=== PATIENT | female | born 1985 | race Caucasian/White ===

== ENCOUNTER → 2017-05-27 | Outpatient (CLI) | payer OTHER ==
[~2017-05-27] MED LIST: METR250 PO; ONDA4 PO; Z.0.BCPILL PO
[2017-05-27 16:17] LABS: HEMATOCRIT 38.4 % (35.0-46.0); MEAN CELL VOLUME 85.9 FL (80.0-100.0); MEAN CORPUSCULAR HEMOGLOBIN 29.1 PG (27.0-34.0); MEAN CORPUSCULAR HGB CONC 33.8 % (32.0-36.0); PLATELET COUNT 258 TH/MM3 (150-450); RED BLOOD COUNT 4.46 MIL/MM3 (4.00-5.30); REVIEW FLAG FINAL; WHITE BLOOD COUNT 6.6 TH/MM3 (4.0-11.0)
[2017-05-27 16:40] LABS: ALT (GPT) 15 U/L (10-53); ANION GAP 6 MEQ/L (5-15); AST (GOT) 6 U/L (15-37); BICARBONATE 25.9 MEQ/L (21.0-32.0); BLOOD UREA NITROGEN 12 MG/DL (7-18); CHLORIDE 107 MEQ/L (98-107); GLOMERULAR FILTRATION RATE 102 ML/MIN (>89); GLUCOSE,FASTING 86 MG/DL (74-99); POTASSIUM 3.9 MEQ/L (3.5-5.1); SODIUM (NA) 139 MEQ/L (136-145)
[2017-05-27 16:50] LABS: ALKALINE PHOSPHATASE 72 U/L (45-117); TOTAL BILIRUBIN ADULT 0.3 MG/DL (0.2-1.0)
== END ==
LOC: CLAB 15:40
PROVIDERS: ATTEND Family Medicine
DX: K50.90 Crohn's disease, unspecified, without complications (principal)
CPT/HCPCS: 36415; 80053; 84443; 85027

== ENCOUNTER 2018-01-31 07:09 | Inpatient (IN) ==
[2018-01-31] MEDS ORDERED: HYDROmorphone PF Inj 2 MG/ML Vial IV.PUSH ONE (07:31)
--- NOTE | 2018-01-31 07:43 | ED ---
HPI General Chief Complaint: Abdominal Pain Stated Complaint: medical Time Seen by Provider: 01/31/18 07:31 Source: patient Mode of arrival: ambulatory Limitations: no limitations History of Present Illness MD complaint: abdominal pain Onset (ago): hour(s) (at 0130) Pain Consistency: constant Location: periumbilical Severity scale (1-10): 7 Quality: sharp Radiation: none Migration to: no migration Relieving factors: nothing Exacerbating factors: nothing Context: other (Previous history of ruptured ovarian cyst) Associated symptoms: nausea and vomiting Treatments prior to arrival: prescription analgesics Related Data Allergies Allergy/AdvReac Type Severity Reaction Status Date / Time infliximab Allergy Severe Unverified 01/14/17 20:37 infliximab-dyyb Allergy Severe Unverified 01/14/17 20:37 sulfamethoxazole AdvReac Severe NAUSEA, Unverified 01/14/17 20:37 CRAMPING ,EPIGASTRIC PAIN trimethoprim AdvReac Severe NAUSEA, Unverified 01/14/17 20:37 CRAMPING ,EPIGASTRIC PAIN Review of Systems ROS: all other systems reviewed are negative [facility] Medical History Medical History Bacterial meningitis (Acute) Bunion of great toe of left foot (Acute) Crohn's disease (Acute) History of pericarditis (Acute) Ovarian cyst (Acute) Social History Social History Substance History: No History of Abuse Second Hand Smoke Exposure: No Smoking Status: Never smoker How Often Do You Have a Drink Containing Alcohol: 2 to 4 times a month Recent Travel in [facility] within the Last 8 Weeks: No Recent Out of Country Travel within the Last 8 Weeks: No Immunization History Tetanus Immunization: <5 Years Tetanus Immunization Year if Known: 2018 Hx Influenza Vaccine This Season: Yes Exam Const General: cooperative, healthy appearing, comfortable, no acute distress, well developed and well groomed Orientation: alert, awake and oriented x3 HENMT Head: normal to inspection, normocephalic and atraumatic Mouth: moist mucous membranes Eyes Conjunctivae: conjunctivae normal Sclera: sclerae normal EOM: EOM intact bilaterally Neck Neck: normal visual inspection and full ROM Chest Chest: normal inspection of the chest Resp Effort & Inspection: normal respiratory effort and able to speak in complete sentences Auscultation: clear to auscultation bilaterally Cardio Rate: regular rate Rhythm: regular rhythm GI Inspection: normal to inspection Palpation: soft and tender Back/Spine/Pelvis Cervical Spine: cervical ROM normal Thoracic/Lumbar Spine: thoraco-lumbar ROM normal Skin General: no rashes or lesions noted and turgor normal Neuro General: alert, awake, oriented x3, moves all extremities and CN's II-XI intact bilaterally Extrem General: normal to inspection and full ROM Psych Appearance: grossly normal Mental Status: mental status grossly normal Speech and Movement: speech and movement normal Mood: congruent mood Affect: normal affect Attitude: cooperative Thought Process: normal Thought Content: normal Judgment: judgment good Course Reevaluation(s) Reevaluation #1: Her ultrasound is negative. I have added a CBC, CMP, lipase, UA and CT of the abdomen and pelvis. She states that she is now pretty comfortable. Time: 08:40 Reevaluation #2: She remains comfortable. I have reviewed the results of her CT with her and have recommended admission to the hospital. Time: 11:20 Consultations Consultation #1: Dr. Armstrong will admit and consult surgery. Time: 11:39 Initial Documented Vital Signs Pulse Rate 85 01/31/18 07:22 Respiratory Rate 18 01/31/18 07:22 Blood Pressure 119/67 01/31/18 07:22 Pulse Oximetry 99 01/31/18 07:22 Last Documented Vital Signs Temperature 98.5 F 01/31/18 07:28 Pulse Rate 95 H 01/31/18 07:28 Respiratory Rate 18 01/31/18 07:28 Blood Pressure 114/64 01/31/18 07:28 Pulse Oximetry 100 01/31/18 07:28 Medical Decision Making [facility] Narrative Medical decision making narrative: Patient with a known history ovarian cyst who presents complaining with pain similar to that. She also has a history of Crohn's disease but states that this pain is in no way similar to Crohn's disease. She does not have any associated urinary tract symptoms or diarrhea. She does state that the pain is so severe that it is made her vomit. I will treat her pain with Dilaudid. She will be given a liter of IV fluids. test and pelvic ultrasound are pending. Medical Screen Exam Complete: Yes Emergency Medical Condition: Yes Differential Diagnosis Differential Diagnosis: Differential diagnosis of pelvic pain includes but is not limited to UTI, PID, ectopic , spontaneous AB, constipation, viral illness Lab Data Lab results reviewed: Yes I reviewed the patient's lab results. Result diagrams: 01/31/18 08:45 01/31/18 08:45 POC Results POC Urine Results Negative Lab Results 01/31/18 01/31/18 01/31/18 Range/Units 08:45 08:45 08:50 WBC 14.8 H (4.0-11.0) th/mm3 RBC 4.86 (4.00-5.30) mil/mm3 Hgb 14.5 (11.6-15.3) gm/dL Hct 42.4 (35.0-46.0) % MCV 87.4 (80.0-100.0) fL MCH 29.8 (27.0-34.0) pg MCHC 34.1 (32.0-36.0) % RDW 13.9 (11.6-17.2) % Plt Count 290 (150-450) th/mm3 MPV 9.4 (7.0-11.0) fL Neut % (Auto) 81.5 H (16.0-70.0) % Lymph % (Auto) 11.4 (9.0-44.0) % [place] % (Auto) 6.6 (0.0-8.0) % Eos % (Auto) 0.1 (0.0-4.0) % Baso % (Auto) 0.4 (0.0-2.0) % Neut # (Auto) 12.1 H (1.8-7.7) th/mm3 Lymph # (Auto) 1.7 (1.0-4.8) th/mm3 [place] # (Auto) 1.0 H (0.0-0.9) th/mm3 Eos # (Auto) 0.0 (0.0-0.4) th/mm3 Baso # (Auto) 0.1 (0.0-0.2) th/mm3 WBC Differential . Differential Comment Auto diff final Sodium 142 (136-145) meq/L Potassium 3.9 (3.5-5.1) meq/L Chloride 107 (98-107) meq/L Carbon Dioxide 22.8 (21.0-32.0) meq/L Anion Gap 12 (5-15) meq/L BUN 10 (7-18) mg/dL Creatinine 0.79 (0.50-1.00) mg/dL Estimated GFR 84 L (>89) mL/min Random Glucose 95 (74-106) mg/dL Calcium 9.2 (8.5-10.1) mg/dL Total Bilirubin 0.5 (0.2-1.0) mg/dL AST 11 L (15-37) U/L ALT 22 (10-53) U/L Alkaline Phosphatase 65 (45-117) U/L Total Protein 8.2 (6.4-8.2) g/dL Albumin 4.1 (3.4-5.0) g/dL Lipase 80 (73-393) U/L Urine Color Yellow (Yellw/Straw) Urine Clarity Hazy H (Clear) Urine pH 7.0 (5.0-8.5) Ur Specific [place] 1.025 (1.002-1.035) Urine Protein Negative (Neg-Trace) mg/dL Urine Glucose (UA) Negative (Negative) mg/dL Urine Ketones 20 (Negative) mg/dL Urine Occult Blood Negative (Negative) Urine Nitrate Negative (Negative) Urine Bilirubin Negative (Negative) Urine Urobilinogen Less than 2 (Less than 2) mg/dL Ur Leukocyte Esterase Trace H (Negative) Urine RBC 2 (0-3) /hpf Urine WBC 1 (0-5) /hpf Ur Squamous Epith Cells 4 (0-5) /hpf Urine Mucus Few H (Occasional) /lpf Micro UA Comment Culture not ind Ur Microscopic Review Not Reportable Urine Culture Comments Culture not ind Imaging Data Radiologist's impression: Pelvis Ultrasound 01/31/18 07:31 CONCLUSION: 1. Negative ultrasound pelvis. Abdomen/Pelvis CT 01/31/18 08:38 CONCLUSION: 1. Abnormal configuration of bowel in the right lower quadrant and upper pelvis is noted with bowel wall thickening, a small amount of free fluid and mesenteric stranding identified. There is a long segment of abnormal thickened bowel at the level of the terminal ileum with proximal small bowel dilatation suggesting at least partial obstruction or ileus. The inflammatory changes and wall thickening also appear to involve the sigmoid colon in this region. Fistulous communication between sigmoid colon and distal ileum as well as sigmoid and base of cecum are also suspected best appreciated on coronal imaging , sigmoid and distal ileum on coronal image 30 and 31, and sigmoid and cecum on image 30. Is there a history of inflammatory bowel disease? Discharge Plan Discharge Disposition Patient Disposition: 30 Still Patient Discharge Details Diagnosis: Abdominal pain, Bowel disease, inflammatory, Partial bowel obstruction Physicians Team ED Provider: Leonor Hlil Primary Care Provider: Harvinder Valle Status ED Status: Pending Admission
[2018-01-31] MEDS ORDERED: Sod Chloride 0.9% Inj 1,000 ML IV.SIG SCH (07:45)
--- NOTE | 2018-01-31 08:34 | US ---
EXAM DATE: 01/31/2018 8:21 AM EDT AGE/SEX: 32 years / Female INDICATIONS: Pelvic pain. CLINICAL DATA: This is the patient's initial encounter. Patient reports that signs and symptoms have been present for 1 day and indicates a pain score of 7/10. MEDICAL/SURGICAL HISTORY: Carcinoma, anal. Bacterial meningitis. Crohn's disease. History of pe ricarditis. Ovarian cysts. None. COMPARISON: No prior exams available for comparison. MEASUREMENTS: Uterus:__7.6 x 4.6 x 3.8 cm Endometrial Stripe:__11 mm Right Ovary:__ 3.5 x 2.6 x 2.2 cm Left Ovary:__ 4.3 x 2.5 x 2.0 cm FINDINGS: Uterus: The myometrium has homogeneous echotexture without mass. Endometrial Stripe: The endometrial stripe displays homogeneous echotexture. Right Ovary: Ovary contains no mass or significant cystic lesion. Left Ovary: Ovary contains no mass or significant cystic lesion. Fluid: No free fluid. Other: None. CONCLUSION: 1. Negative ultrasound pelvis. Electronically signed by: Scar Zhao MD 01/31/2018 8:33 AM EDT
[2018-01-31 09:05] LABS: Baso # (Auto) 0.1 th/mm3 (0.0-0.2); Baso % (Auto) 0.4 % (0.0-2.0); Eos % (Auto) 0.1 % (0.0-4.0); Hematocrit 42.4 % (35.0-46.0); Hemoglobin 14.5 gm/dL (11.6-15.3); Lymph # (Auto) 1.7 th/mm3 (1.0-4.8); Lymph % (Auto) 11.4 % (9.0-44.0); Mean Corpuscular HGB Conc 34.1 % (32.0-36.0); Mean Corpuscular Hemoglobin 29.8 pg (27.0-34.0); Mean Corpuscular Volume 87.4 fL (80.0-100.0); Mean Platelet Volume 9.4 fL (7.0-11.0); Mono % (Auto) 6.6 % (0.0-8.0); Neut # (Auto) 12.1 th/mm3 (1.8-7.7); Neut % (Auto) 81.5 % (16.0-70.0); Platelet Count 290 th/mm3 (150-450); Red Blood Count 4.86 mil/mm3 (4.00-5.30); Red Cell Distribution Width 13.9 % (11.6-17.2); White Blood Count 14.8 th/mm3 (4.0-11.0)
[2018-01-31 09:09] LABS: Bilirubin,Urine Negative (Negative); Clarity,Urine Hazy (Clear); Color,Urine Yellow (Yellw/Straw); Glucose,Urine (UA) Negative (Negative); Leukocyte Esterase,Urine Trace (Negative); Mucus,Urine Few /lpf (Occasional); Nitrite,Urine Negative (Negative); Specific Gravity,Urine 1.025 (1.002-1.035); Squamous Epithelial Cell,Urine 4 /hpf (0-5)
[2018-01-31 09:23] LABS: Alanine Aminotransferase 22 U/L (10-53); Albumin 4.1 g/dL (3.4-5.0); Anion Gap 12 meq/L (5-15); Aspartate Aminotransferase 11 U/L (15-37); Blood Urea Nitrogen 10 mg/dL (7-18); Calcium 9.2 mg/dL (8.5-10.1); Carbon Dioxide 22.8 meq/L (21.0-32.0); Chloride 107 meq/L (98-107); Glomerular Filtration Rate 84 mL/min (>89); Glucose,Random 95 mg/dL (74-106); Lipase 80 U/L (73-393); Potassium 3.9 meq/L (3.5-5.1); Sodium 142 meq/L (136-145)
[2018-01-31 09:25] LABS: Alkaline Phosphatase 65 U/L (45-117); Total Protein 8.2 g/dL (6.4-8.2)
--- NOTE | 2018-01-31 10:49 | CT ---
EXAM DATE: 01/31/2018 10:29 AM EDT AGE/SEX: 32 years / Female INDICATIONS: Abdominal pain. CLINICAL DATA: This is the patient's initial encounter. Patient reports that signs and symptoms have been present for 1 day and indicates a pain score of 8/10. MEDICAL/SURGICAL HISTORY: Crohn's disease. Pericarditis. Bacterial meningitis. None. ORAL CONTRAST: No oral contrast ingested. RADIATION DOSE: 4.7 CTDI (mGy) COMPARISON: No prior exams available for comparison. TECHNIQUE: Multiple contiguous axial images were obtained through the abdomen and pelvis following b olus infusion of 70 ml Omnipaque 350 (iohexol) nonionic water-soluble contrast as a single exam dos e. No oral contrast ingested. Using automated exposure control and adjustment of the mA and/or kV ac cording to patient size, radiation dose was kept as low as reasonably achievable to obtain optimal di agnostic quality images. DICOM format image data is available electronically for review and comparis on. FINDINGS: No pleural or pericardial effusions. Lung bases are clear. Liver, gallbladder, kidneys, adrenals, spl een, pancreas are normal in appearance. Urinary bladder, uterus unremarkable. 1.7 cm right ovarian cy st. In the right lower quadrant and upper pelvis there is an abnormal configuration of large and smal l bowel loops identified with a tethered appearance, mesenteric stranding, focal narrowing of the dis letitia ileum with bowel wall thickening and then dilated proximal fluid-filled loops of small bowel seen . Focal bowel wall thickening involves the sigmoid as well as distal small bowel with findings sugges ting adhesions at this level, best appreciated on axial image 61 through 65. There is no free air. CONCLUSION: 1. Abnormal configuration of bowel in the right lower quadrant and upper pelvis is noted with bowel wall thickening, a small amount of free fluid and mesenteric stranding identified. There is a long se gment of abnormal thickened bowel at the level of the terminal ileum with proximal small bowel dilata tion suggesting at least partial obstruction or ileus. The inflammatory changes and wall thickening a lso appear to involve the sigmoid colon in this region. Fistulous communication between sigmoid colon and distal ileum as well as sigmoid and base of cecum are also suspected best appreciated on coronal imaging, sigmoid and distal ileum on coronal image 30 and 31, and sigmoid and cecum on image 30. Is there a history of inflammatory bowel disease? Electronically signed by: Scar Zhao MD 01/31/2018 10:47 AM EDT
[2018-01-31] MEDS ORDERED: Piperacil/Tazo 3.375 GM Premix 50 ML IV.SIG ONE (11:00)
[2018-01-31] MEDS ORDERED: Acetaminophen 325 MG Tablet PO PRN (11:45)
[2018-01-31] MEDS ORDERED: Temazepam 15 MG Capsule PO PRN (11:45)
[2018-01-31] MEDS ORDERED: HYDROmorphone PF Inj 2 MG/ML Vial IV.PUSH PRN ×2 (11:54→12:20)
--- NOTE | 2018-01-31 12:01 | P.HP ---
<Hetal Kerr - Last Filed: 01/31/18 12:50> History of Present Illness Primary Care Physician: Harvinder Valle MD History of Present Illness: This 32 year old female patient with a past medical history which includes Crohn 's disease diagnosed at age 8, follow ed by Dr. Diaz, Ovarian cysts, Pericarditis and Bacterial meningitis at age 16. Patient presents to the ER with complaints of acute onset abd pain worse on the left which began early this AM while patient was sleeping. Patient does endorse associated nausea and vomiting x 5-6. Patient describes the pain as sharp and severe at onset. Patient tried taking Percocet and Phenergan at home which did not relieve symptoms. Currently patient's pain has improved after Dilaudid IV x 1 given in ER. One loose BM while in the ER, no blood or black color. Patient recently completed 2-3 month prednisone taper which she completed 1 week ago. Last colonoscopy 2014, she has colonoscopies every 5 years Patient denies fevers, chills, shortness of breath or chest pain. Pelvis Ultrasound 01/31/18 07:31 1. Negative ultrasound pelvis. Abdomen/Pelvis CT 01/31/18 08:38 1. Abnormal configuration of bowel in the right lower quadrant and upper pelvis is noted with bowel wall thickening, a small amount of free fluid and mesenteric stranding identified. There is a long segment of abnormal thickened bowel at the level of the terminal ileum with proximal small bowel dilatation suggesting at least partial obstruction or ileus. The inflammatory changes and wall thickening also appear to involve the sigmoid colon in this region. Fistulous communication between sigmoid colon and distal ileum as well as sigmoid and base of cecum are also suspected best appreciated on coronal imaging , sigmoid and distal ileum on coronal image 30 and 31, and sigmoid and cecum on image 30. Is there a history of inflammatory bowel disease? PMH: Crohn's disease diagnosed at age 8, follow ed by Dr. 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 This includes certification that hospital inpatient services are reasonable and necessary and in the case of services not specified as inpatient-only under 42 CFR 419.22(n), that they are appropriately provided as inpatient services in accordance to with the 2-midnight benchmark under 43 CFR 412.3(e) Review of Systems All other systems reviewed negative except as stated in HPI PMFSH - History History Provided By: Patient - Medical History Medical History: Medical History (Last Reviewed 01/31/18 @ 07:41 by Leonor Hill) Bacterial meningitis Bunion of great toe of left foot Crohn's disease History of pericarditis Ovarian cyst - Tobacco History Second Hand Smoke Exposure: No Tobacco Use In Past 30 Days: No Smoking Status: Never smoker - Alcohol History How Often Do You Have a Drink Containing Alcohol: 2 to 4 times a month - Substance Use History Substance History: No History of Abuse - Travel History Recent Travel in the [place] Within the Last 8 Weeks: No Recent Travel Out of the Country Within the Last 8 Weeks: No - Immunization History Tetanus Immunization: <5 Years Tetanus Immunization Year if Known: 2017 Hx Influenza Vaccine This Season: Yes Medications and Allergies Allergies Allergy/AdvReac Type Severity Reaction Status Date / Time infliximab Allergy Severe Unverified 01/14/17 20:37 infliximab-dyyb Allergy Severe Unverified 01/14/17 20:37 sulfamethoxazole AdvReac Severe NAUSEA, Unverified 01/14/17 20:37 CRAMPING ,EPIGASTRIC PAIN trimethoprim AdvReac Severe NAUSEA, Unverified 01/14/17 20:37 CRAMPING ,EPIGASTRIC PAIN Home Medications Medication Instructions Recorded Confirmed Type No Known Home Medications 01/31/18 01/31/18 History Active Medications: Active Medications Sodium Chloride (Ns Inj) 1,000 mls @ 0 mls/hr IV.SIG BOLUS MURRAY Last Admin: 01/31/18 07:39 Dose: 999 mls/hr Sodium Chloride (Ns Flush) 2 ml IV.FLUSH PRN PRN PRN Reason: FLUSH AFTER USING IV ACCESS Exam Vital signs: Vital Signs 01/31/18 07:22 01/31/18 07:28 Temperature 98.5 F Pulse Rate 85 95 H Respiratory Rate 18 18 Blood Pressure 119/67 114/64 Pulse Oximetry 99 100 Intake & Output 01/30/18 01/31/18 01/31/18 18:59 06:59 18:59 Weight 49.895 kg Narrative: GENERAL: This is a well-nourished, well-developed patient, in no apparent distress. CARDIOVASCULAR: Regular rate and rhythm RESPIRATORY: Clear to auscultation. Breath sounds equal bilaterally. GASTROINTESTINAL: Abdomen soft, non-tender, nondistended. very few bowel sounds MUSCULOSKELETAL: Extremities without clubbing, cyanosis, or edema. NEURO: Alert & Oriented x4 to person, place, time, situation. Moves all ext x4 Results - Labs CBC & Chem 7: 01/31/18 08:45 01/31/18 08:45 Labs: Laboratory Results - last 24 hr 01/31/18 01/31/18 01/31/18 08:45 08:45 08:50 WBC 14.8 H RBC 4.86 Hgb 14.5 Hct 42.4 MCV 87.4 MCH 29.8 MCHC 34.1 RDW 13.9 Plt Count 290 MPV 9.4 Neut % (Auto) 81.5 H Lymph % (Auto) 11.4 [place] % (Auto) 6.6 Eos % (Auto) 0.1 Baso % (Auto) 0.4 Neut # (Auto) 12.1 H Lymph # (Auto) 1.7 [place] # (Auto) 1.0 H Eos # (Auto) 0.0 Baso # (Auto) 0.1 WBC Differential . Differential Comment Auto diff final Sodium 142 Potassium 3.9 Chloride 107 Carbon Dioxide 22.8 Anion Gap 12 BUN 10 Creatinine 0.79 Estimated GFR 84 L Random Glucose 95 Calcium 9.2 Total Bilirubin 0.5 AST 11 L ALT 22 Alkaline Phosphatase 65 Total Protein 8.2 Albumin 4.1 Lipase 80 Urine Color Yellow Urine Clarity Hazy H Urine pH 7.0 Ur Specific [place] 1.025 Urine Protein Negative Urine Glucose (UA) Negative Urine Ketones 20 Urine Occult Blood Negative Urine Nitrate Negative Urine Bilirubin Negative Urine Urobilinogen Less than 2 Ur Leukocyte Esterase Trace H Urine RBC 2 Urine WBC 1 Ur Squamous Epith Cells 4 Urine Mucus Few H Micro UA Comment Culture not ind Ur Microscopic Review Not Reportable Urine Culture Comments Culture not ind - Imaging Impressions Pelvis Ultrasound 01/31/18 07:31 CONCLUSION: 1. Negative ultrasound pelvis. Abdomen/Pelvis CT 01/31/18 08:38 CONCLUSION: 1. Abnormal configuration of bowel in the right lower quadrant and upper pelvis is noted with bowel wall thickening, a small amount of free fluid and mesenteric stranding identified. There is a long segment of abnormal thickened bowel at the level of the terminal ileum with proximal small bowel dilatation suggesting at least partial obstruction or ileus. The inflammatory changes and wall thickening also appear to involve the sigmoid colon in this region. Fistulous communication between sigmoid colon and distal ileum as well as sigmoid and base of cecum are also suspected best appreciated on coronal imaging , sigmoid and distal ileum on coronal image 30 and 31, and sigmoid and cecum on image 30. Is there a history of inflammatory bowel disease? Caprini VTE Risk Assessment Caprini VTE Risk Assessment: No/Low Risk (score <= 1) Caprini Risk Assessment Model: Point Value = 1 Point Value = 2 Point Value = 3 Point Value = 5 Age 41-60 Minor surgery BMI > 25 kg/m2 Swollen legs Varicose veins or History of unexplained or recurrent spontaneous Oral contraceptives or hormone replacement Sepsis (< 1 month) Serious lung disease, including pneumonia (< 1 month) Abnormal pulmonary function Acute myocardial infarction Congestive heart failure (< 1 month) History of inflammatory bowel disease Medical patient at bed rest Age 61-74 Arthroscopic surgery Major open surgery (> 45 min) Laparoscopic surgery (> 45 min) Malignancy Confined to bed (> 72 hours) Immobilizing plaster cast Central venous access Age >= 75 History of VTE Family history of VTE Factor V Leiden Prothrombin [id number] Lupus anticoagulant Anticardiolipin antibodies Elevated serum homocysteine Heparin-induced thrombocytopenia Other congenital or acquired thrombophilia Stroke (< 1 month) Elective arthroplasty Hip, pelvis, or leg fracture Acute spinal cord injury (< 1 month) Prophylaxis Regimen: Total Risk Factor Score Risk Level Prophylaxis Regimen 0-1 Low Early ambulation 2 Moderate Order ONE of the following: *Sequential Compression Device (SCD) *Heparin 5000 units SQ BID 3-4 Higher Order ONE of the following medications: *Heparin 5000 units SQ TID *Enoxaparin/Lovenox 40 mg SQ daily (WT < 150 kg, CrCl > 30 mL/min) *Enoxaparin/Lovenox 30 mg SQ daily (WT < 150 kg, CrCl > 10-29 mL/min) *Enoxaparin/Lovenox 30 mg SQ BID (WT < 150 kg, CrCl > 30 mL/min) AND/OR *Sequential Compression Device (SCD) 5 or more Highest Order ONE of the following medications: *Heparin 5000 units SQ TID (Preferred with Epidurals) *Enoxaparin/Lovenox 40 mg SQ daily (WT < 150 kg, CrCl > 30 mL/min) *Enoxaparin/Lovenox 30 mg SQ daily (WT < 150 kg, CrCl > 10-29 mL/min) *Enoxaparin/Lovenox 30 mg SQ BID (WT < 150 kg, CrCl > 30 mL/min) AND *Sequential Compression Device (SCD) Assessment and Plan - Assessment (1) Abdominal pain Code(s): R10.9 - Unspecified abdominal pain Status: Acute Plan: This 32 year old female patient with a past medical history which includes Crohn 's disease diagnosed at age 8, follow ed by Dr. Diaz, Ovarian cysts, Pericarditis and Bacterial meningitis at age 16. Patient presents to the ER with complaints of acute onset suprapubic pain which began early this AM while patient was sleeping. Patient does endorse associated nausea and vomiting. Patient describes the pain as sharp and severe at onset. Currently patient's pain has improved after Dilaudid 2 g IV x 1 given in ER. Patient denies fevers, chills, shortness of breath or chest pain. Pelvis Ultrasound 01/31/18 07:31 1. Negative ultrasound pelvis. Abdominal pain partial obstruction vs ileus Fistula- communication between sigmoid colon and distal ileum as well as sigmoid and base of cecum Abdomen/Pelvis CT 01/31/18 08:38 1. Abnormal configuration of bowel in the right lower quadrant and upper pelvis is noted with bowel wall thickening, a small amount of free fluid and mesenteric stranding identified. There is a long segment of abnormal thickened bowel at the level of the terminal ileum with proximal small bowel dilatation suggesting at least partial obstruction or ileus. The inflammatory changes and wall thickening also appear to involve the sigmoid colon in this region. Fistulous communication between sigmoid colon and distal ileum as well as sigmoid and base of cecum are also suspected best appreciated on coronal imaging , sigmoid and distal ileum on coronal image 30 and 31, and sigmoid and cecum on image 30. Is there a history of inflammatory bowel disease? Dr. Donnelly discussed case with Dr. Acevedo Patient seen by Dr. Reddy, recommends medical management at this time Start solu medrol 60 mg IV BID Consult to Dr. Diaz NPO Patient does not want NG tube, will hold of for now IVFs Zosyn IV Zofran as needed for N/V CBC and BMP in AM coag panel CXR DVT prophylaxis with SCDs <Rupert Armstrong - Last Filed: 02/01/18 12:37> History of Present Illness Primary Care Physician: Harvinder Valle MD - Diagnosis (1) Abdominal pain Inpatient Certification: I certify that the inpatient services were ordered in accordance with Medicare regulations governing the order. This includes certification that hospital inpatient services are reasonable and necessary and in the case of services not specified as inpatient-only under 42 CFR 419.22(n), that they are appropriately provided as inpatient services in accordance to with the 2-midnight benchmark under 43 CFR 412.3(e) [facility] - Medical History Medical History: Medical History (Last Reviewed 01/31/18 @ 07:41 by Leonor Hill) Bacterial meningitis Bunion of great toe of left foot Crohn's disease History of pericarditis Ovarian cyst Medications and Allergies Active Medications: Active Medications Acetaminophen (Tylenol) 650 mg PO Q4H PRN PRN Reason: Temp > 100.4 Hydrocodone Bitart/Acetaminophen ([place] 7.5/325) 1 tab PO Q4H PRN PRN Reason: PAIN SCALE 1 TO 10 Al Hydroxide/Mg Hydroxide (Milk Of Saman Liq) 30 ml PO Q12H PRN PRN Reason: Mild Constipation Hydromorphone HCl (Dilaudid Pf Inj) 0.5 mg IV.PUSH Q4H PRN PRN Reason: BREAKTHROUGH PAIN Sodium Chloride (Ns Inj) 1,000 mls @ 0 mls/hr IV.SIG BOLUS MURRAY Last Infusion: 01/31/18 16:31 Dose: Infused Potassium Chloride 10 meq/ (Sodium Chloride) 1,005 mls @ 100 mls/hr IV.CONT .Q10H3M MURRAY Last Admin: 02/01/18 01:36 Dose: 50 mls/hr Piperacillin/Tazobactam/Dextrose (Zosyn 3.375 Gm Premix) 50 mls @ 100 mls/hr IV.SIG Q6H MURRAY Last Infusion: 02/01/18 06:36 Dose: Infused Methylprednisolone Sodium Succinate (Solumedrol Inj) 60 mg IV.PUSH Q12HR MURRAY Last Admin: 02/01/18 09:20 Dose: 60 mg Ondansetron HCl (Zofran Inj) 4 mg IV.PUSH Q4H PRN PRN Reason: NAUSEA OR VOMITING Senna/Docusate Sodium (Susan-Colace) 1 tab PO BID [facility] Last Admin: 02/01/18 09:19 Dose: Not Given Sodium Chloride (Ns Flush) 2 ml IV.FLUSH PRN PRN PRN Reason: FLUSH AFTER USING IV ACCESS Temazepam (Restoril) 15 mg PO HS PRN PRN Reason: INSOMNIA Exam Vital signs: Vital Signs 01/31/18 16:00 01/31/18 20:00 02/01/18 00:00 Temperature 98.1 F 98.1 F 98.2 F Pulse Rate 81 84 84 Respiratory Rate 17 18 18 Blood Pressure 103/53 L 93/50 L 92/55 L Pulse Oximetry 98 98 98 02/01/18 08:00 02/01/18 12:00 Temperature 98.0 F 98.2 F Pulse Rate 83 79 Respiratory Rate 17 17 Blood Pressure 110/55 L 104/57 L Pulse Oximetry 99 99 Intake & Output 01/31/18 02/01/18 02/01/18 18:59 06:59 18:59 Intake Total 1050 / 1050 1515 / 1515 Balance 1050 / 1050 1515 / 1515 Weight 49.895 kg 49.9 kg Intake: IV 1050 / 1050 1155 / 1155 KCl Inj 10 MEQ In 1/2 Normal 1005 / 1005 Saline Inj 1,000 ML @ 100 mls/ hr IV.CONT .Q10H3M MURRAY Rx#: [id number] Zosyn 3.375 GM Premix 50 ML @ 50 / 50 150 / 150 100 mls/hr IV.SIG Q6H MURRAY Rx#: [id number] NS Inj 1,000 ML @ Wide Open IV. 1000 / 1000 SIG BOLUS MURRAY Rx#:[id number] Oral 360 / 360 Other: # Voids 2 Date of Last Bowel Movement 01/31/18 02/01/18 # Bowel Movements 1 Results - Labs CBC & Chem 7: 02/01/18 05:36 02/01/18 05:36 Labs: Laboratory Results - last 24 hr 01/31/18 01/31/18 01/31/18 13:49 13:49 13:49 WBC RBC Hgb Hct MCV MCH MCHC RDW Plt Count MPV Neut % (Auto) Lymph % (Auto) [place] % (Auto) Eos % (Auto) Baso % (Auto) Neut # (Auto) Lymph # (Auto) [place] # (Auto) Eos # (Auto) Baso # (Auto) WBC Differential Differential Comment PT 10.0 INR 1.0 APTT 25.9 Sodium Potassium Chloride Carbon Dioxide Anion Gap BUN Creatinine Estimated GFR Random Glucose Calcium Magnesium 2.0 02/01/18 02/01/18 05:36 05:36 WBC 8.3 RBC 4.17 Hgb 12.6 Hct 36.0 MCV 86.3 MCH 30.2 MCHC 35.0 RDW 13.5 Plt Count 236 MPV 9.6 Neut % (Auto) 88.8 H Lymph % (Auto) 8.5 L [place] % (Auto) 2.6 Eos % (Auto) 0.0 Baso % (Auto) 0.1 Neut # (Auto) 7.3 Lymph # (Auto) 0.7 L [place] # (Auto) 0.2 Eos # (Auto) 0.0 Baso # (Auto) 0.0 WBC Differential . Differential Comment Auto diff final PT INR APTT Sodium 143 Potassium 3.7 Chloride 108 H Carbon Dioxide 23.4 Anion Gap 12 BUN 7 Creatinine 0.64 Estimated GFR Greater than 89 Random Glucose 104 Calcium 8.4 L D Magnesium - Imaging Impressions Chest X-Ray 01/31/18 00:00 CONCLUSION: Negative examination. Caprini VTE Risk Assessment Caprini Risk Assessment Model: Point Value = 1 Point Value = 2 Point Value = 3 Point Value = 5 Age 41-60 Minor surgery BMI > 25 kg/m2 Swollen legs Varicose veins or History of unexplained or recurrent spontaneous Oral contraceptives or hormone replacement Sepsis (< 1 month) Serious lung disease, including pneumonia (< 1 month) Abnormal pulmonary function Acute myocardial infarction Congestive heart failure (< 1 month) History of inflammatory bowel disease Medical patient at bed rest Age 61-74 Arthroscopic surgery Major open surgery (> 45 min) Laparoscopic surgery (> 45 min) Malignancy Confined to bed (> 72 hours) Immobilizing plaster cast Central venous access Age >= 75 History of VTE Family history of VTE Factor V Leiden Prothrombin [id number] Lupus anticoagulant Anticardiolipin antibodies Elevated serum homocysteine Heparin-induced thrombocytopenia Other congenital or acquired thrombophilia Stroke (< 1 month) Elective arthroplasty Hip, pelvis, or leg fracture Acute spinal cord injury (< 1 month) Prophylaxis Regimen: Total Risk Factor Score Risk Level Prophylaxis Regimen 0-1 Low Early ambulation 2 Moderate Order ONE of the following: *Sequential Compression Device (SCD) *Heparin 5000 units SQ BID 3-4 Higher Order ONE of the following medications: *Heparin 5000 units SQ TID *Enoxaparin/Lovenox 40 mg SQ daily (WT < 150 kg, CrCl > 30 mL/min) *Enoxaparin/Lovenox 30 mg SQ daily (WT < 150 kg, CrCl > 10-29 mL/min) *Enoxaparin/Lovenox 30 mg SQ BID (WT < 150 kg, CrCl > 30 mL/min) AND/OR *Sequential Compression Device (SCD) 5 or more Highest Order ONE of the following medications: *Heparin 5000 units SQ TID (Preferred with Epidurals) *Enoxaparin/Lovenox 40 mg SQ daily (WT < 150 kg, CrCl > 30 mL/min) *Enoxaparin/Lovenox 30 mg SQ daily (WT < 150 kg, CrCl > 10-29 mL/min) *Enoxaparin/Lovenox 30 mg SQ BID (WT < 150 kg, CrCl > 30 mL/min) AND *Sequential Compression Device (SCD) Assessment and Plan - Assessment (1) Abdominal pain Code(s): R10.9 - Unspecified abdominal pain Status: Acute - Attending Attestation Patient examined. Assessment and plan formulated with Hetal Kerr PA-C. I agree with the above. <Hetal Kerr W - Last Filed: 01/31/18 12:50> (1) Abdominal pain Qualifiers: Abdominal location: periumbilical Qualified Code(s): R10.33 - Periumbilical pain <Rupert Armstrong - Last Filed: 02/01/18 12:37> (1) Abdominal pain Qualifiers: Abdominal location: periumbilical Qualified Code(s): R10.33 - Periumbilical pain
--- NOTE | 2018-01-31 12:51 | XR ---
EXAM DATE: 01/31/2018 12:31 PM EDT AGE/SEX: 32 years / Female INDICATIONS: Cough. Abdominal pain. CLINICAL DATA: This is the patient's initial encounter. Patient reports that signs and symptoms have been present for 1 day and indicates a pain score of 0/10. MEDICAL/SURGICAL HISTORY: . Carcinoma, anal. Bacterial meningitis. Crohn's disease. History of pericarditis. Ovarian cysts. None. COMPARISON: [facility] [place], CHEST ONE VIEW EMPLOYMED ONLY, 11/01/2014. . FINDINGS: A single AP view of the chest demonstrates the lungs to be symmetrically aerated without evidence of mass, infiltrate or effusion. The cardiomediastinal contours are unremarkable. Osseous structures a re intact. CONCLUSION: Negative examination. Electronically signed by: Scar Zhao MD 01/31/2018 12:49 PM EDT
[2018-01-31] MEDS: Potassium Chloride Inj 10 MEQ in Sodium Chloride 0.45 % Inj 1,000 ML IV.CONT SCH (15:09)
[2018-01-31] MEDS: MethylPREDNISolone Sod Succinate Inj 125 MG/2 ML Vial IV.PUSH SCH ×2 (15:10→21:02)
--- NOTE | 2018-01-31 15:36 | MB ---
cc: Manjit Reddy MD, Edward B DO Moulis, Harry MD DATE: 01/31/2018 CHIEF COMPLAINT: Abdominal pain. 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 It started about 1:30 this morning and she thought maybe that it was an ovarian cyst rupturing. She took a Percocet of her 's and it relieved the pain a little bit, but did not really remove the pain. She then became nauseated and had multiple episodes of vomiting at home and then again at the hospital. She says that her pain has eased off at this time, although she has had some intravenous Dilaudid here as well as some Zofran at home. Nevertheless, she has a long history of Crohn disease since 8 years old. She follows with Reilly Diaz. Her last colonoscopy was April 2015. At that time, she had fairly severe terminal ileitis. She does relate that over the last 2-3 months, she developed what she considers a flare-up of her Crohn disease. It sounds as if she was under stress from school and had some mild abdominal complaints, although was not in a lot of pain. She generally does not have diarrhea. Moves her bowels about twice a day and it is generally soft. She has not been on any Crohn's medications for some time. Part of the reason is she is not on biologics because she was thinking of becoming . Also, she says that 6-MP has caused her to bleed in the past and she is not on a mesalamine-type drug at this time. She had been on prednisone treated by Dr. Diaz' physician registered nurse first assistant, given 30 mg a day for a month and then tapering 5 mg off per week over the last 6 or 8 weeks. She just came off the prednisone recently. This episode started, as mentioned, about 12 hours ago. She is fairly comfortable at this time. PAST MEDICAL HISTORY: Significant for a previous pericardial effusion and pericardial window. She has not had any abdominal surgery or Crohn resections in the past. On coming to the emergency department, she had an ultrasound of her pelvis, which showed that the uterus was 7.6 x 4.6 x 3.8 cm in size. Right ovary and left ovary were of normal size without any cystic lesions. There was no free fluid. It was felt to be a negative pelvic ultrasound. She then underwent CT scan of the abdomen and pelvis as mentioned. There were no previous studies to compare. She did not take oral contrast. The lung bases were clear and the liver, gallbladder, kidneys, adrenal and spleen and pancreas were all normal. The urinary bladder and the uterus were unremarkable. She did have a 1.7 cm right ovarian cyst. In the upper pelvis, there was an abnormal configuration of large and small bowel loops identified with a tethered appearance with mesenteric stranding, focal narrowing of the distal ileum, and bowel wall thickening and some dilated proximal fluid-filled loops of small bowel. There was focal bowel wall thickening of the sigmoid colon as well, which suggested adhesion. There was no free intraabdominal air. Fistulous communication between the sigmoid and distal ileum or base of the cecum was suspected on coronal images. The radiologist asked if there was a history of inflammatory bowel disease. Nevertheless, the patient feels improved at this time. PHYSICAL EXAMINATION: GENERAL: Well-developed, well-nourished female, in no acute distress at this time. SKIN: Warm and dry. HEENT: Extraocular muscles intact. ABDOMEN: Soft, mild periumbilical and suprapubic tenderness on deep palpation. No peritonitis or masses are palpable. Rectovaginal examination was not done. 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 PLAN: I would certainly recommend conservative therapy here with IV fluids. It is certainly possible that she could tolerate fluids at this time, and I would certainly start her on hydrocortisone intravenously or methylprednisolone intravenously or even oral prednisone, if she is able to take prednisone by mouth. As well as her nausea and vomiting is a quiet, she can advance her diet. There is no acute need for surgical intervention at this time and she should follow ultimately with gastroenterology, specifically her ui developer designer, Dr. Diaz. Her last colonoscopy was April 2015. Sigmoidoscopy as an outpatient may be indicated, given the sigmoid inflammation seen on the CT scan. I did briefly discuss with her the merits of staying on some sort of Crohn medication chronically such as a mesalamine-type drug and/or a biologic. I will certainly leave this to Dr. Diaz to discuss with him her further if she feels that it is indicated. If she requires surgery, she likely will require a terminal ileum and cecum resection with anastomosis and possibly even a sigmoid resection if there is a fistula. This may be required in the future given her acute symptoms, but it is also quite possible that with medical treatment this will improve. It may be difficult to prep her for a colonoscopy at this time. She says that she has her colonoscopies every 5 years at present. I answered all of her questions and I will be happy to follow along with you. MD KAMINI Regan/milton , 01:12 PM , 01:24 PM
[2018-01-31] MEDS: Piperacil/Tazo 3.375 GM Premix 50 ML IV.SIG SCH (18:00)
[2018-01-31] MEDS: Senna/Docusate Sodium 8.6/50 MG Tablet PO SCH (21:03)
[2018-02-01] MEDS: Piperacil/Tazo 3.375 GM Premix 50 ML IV.SIG SCH ×3 (01:23→13:01)
[2018-02-01] MEDS: Potassium Chloride Inj 10 MEQ in Sodium Chloride 0.45 % Inj 1,000 ML IV.CONT SCH ×2 (01:36→13:27)
[2018-02-01 07:23] LABS: Baso % (Auto) 0.1 % (0.0-2.0); Hemoglobin 12.6 gm/dL (11.6-15.3); Lymph # (Auto) 0.7 th/mm3 (1.0-4.8); Lymph % (Auto) 8.5 % (9.0-44.0); Mean Corpuscular Hemoglobin 30.2 pg (27.0-34.0); Mean Corpuscular Volume 86.3 fL (80.0-100.0); Mean Platelet Volume 9.6 fL (7.0-11.0); Mono # (Auto) 0.2 th/mm3 (0.0-0.9); Mono % (Auto) 2.6 % (0.0-8.0); Neut # (Auto) 7.3 th/mm3 (1.8-7.7); Neut % (Auto) 88.8 % (16.0-70.0); Platelet Count 236 th/mm3 (150-450); Red Blood Count 4.17 mil/mm3 (4.00-5.30); Red Cell Distribution Width 13.5 % (11.6-17.2); White Blood Count 8.3 th/mm3 (4.0-11.0)
[2018-02-01 07:47] LABS: Anion Gap 12 meq/L (5-15); Blood Urea Nitrogen 7 mg/dL (7-18); Calcium 8.4 mg/dL (8.5-10.1); Carbon Dioxide 23.4 meq/L (21.0-32.0); Chloride 108 meq/L (98-107); Glomerular Filtration Rate Greater Than 89 mL/min (>89); Glucose,Random 104 mg/dL (74-106); Potassium 3.7 meq/L (3.5-5.1); Sodium 143 meq/L (136-145)
[2018-02-01 08:25] VITALS: RESP 17; O2SAT 99
[2018-02-01] MEDS: Senna/Docusate Sodium 8.6/50 MG Tablet PO SCH (09:19)
[2018-02-01] MEDS: MethylPREDNISolone Sod Succinate Inj 125 MG/2 ML Vial IV.PUSH SCH (09:20)
--- NOTE | 2018-02-01 10:59 | P.PNCS ---
Subjective Interval history: Pt without pain,nausea or vomiting Objective Result Diagrams: 02/01/18 05:36 02/01/18 05:36 Objective Remarks: Abd: flat,soft,nontender Assessment and Plan - Plan D/C anytime F/U with me as needed F/U Dr Diaz D/C antibiotics D/C on Prednisone.
[2018-02-01 12:27] VITALS: BP 104/57; PULSE 79; TEMP 98.2
--- NOTE | 2018-02-01 12:45 | P.PNIM ---
Subjective Interval history: Abdominal pain is improved from admission. Pt has NO new clinical complaints. Pt is tolerating clear liquid diet without n/v/d. Physical Exam Vital signs: 02/01/18 08:00 02/01/18 12:00 Temperature 98.0 F 98.2 F Pulse Rate 83 79 Respiratory Rate 17 17 Blood Pressure 110/55 L 104/57 L Pulse Oximetry 99 99 Narrative: GENERAL: This is a well-nourished, well-developed patient, in no apparent distress. CARDIOVASCULAR: Regular rate and rhythm without murmurs, gallops, or rubs. RESPIRATORY: Clear to auscultation. Breath sounds equal bilaterally. No wheezes , rales, or rhonchi. GASTROINTESTINAL: Abdomen soft, non-tender, nondistended. Normal active bowel sounds MUSCULOSKELETAL: Extremities without clubbing, cyanosis, or edema. NEURO: Alert & Oriented x4 to person, place, time, situation. Moves all ext x4 Results - Labs CBC & Chem 7: 02/01/18 05:36 02/01/18 05:36 - Imaging Chest X-Ray 01/31/18 00:00 CONCLUSION: Negative examination. Assessment and Plan - Assessment (1) Abdominal pain Code(s): R10.9 - Unspecified abdominal pain Status: Acute Plan: This 32 year old female patient with a past medical history which includes Crohn 's disease diagnosed at age 8, follow ed by Dr. Diaz, Ovarian cysts, Pericarditis and Bacterial meningitis at age 16. Patient presents to the ER with complaints of acute onset suprapubic pain which began early this AM while patient was sleeping. Patient does endorse associated nausea and vomiting. Patient describes the pain as sharp and severe at onset. Currently patient's pain has improved after Dilaudid 2 g IV x 1 given in ER. Patient denies fevers, chills, shortness of breath or chest pain. Pelvis Ultrasound 01/31/18 07:31 1. Negative ultrasound pelvis. Abdominal pain partial obstruction vs ileus Fistula- communication between sigmoid colon and distal ileum as well as sigmoid and base of cecum Abdomen/Pelvis CT 01/31/18 08:38 1. Abnormal configuration of bowel in the right lower quadrant and upper pelvis is noted with bowel wall thickening, a small amount of free fluid and mesenteric stranding identified. There is a long segment of abnormal thickened bowel at the level of the terminal ileum with proximal small bowel dilatation suggesting at least partial obstruction or ileus. The inflammatory changes and wall thickening also appear to involve the sigmoid colon in this region. Fistulous communication between sigmoid colon and distal ileum as well as sigmoid and base of cecum are also suspected best appreciated on coronal imaging , sigmoid and distal ileum on coronal image 30 and 31, and sigmoid and cecum on image 30. Is there a history of inflammatory bowel disease? - appreciate input from CRS, Dr. Reddy. No surgery at this time. Conservative mgmt only - Pt received IV solumedrol & IV zosyn (01/31 - 02/01) - Case d/w GI, Dr. Morrison (02/01/18) - Discharge to home today - prednisone 40mg PO daily. Further steroids per GI - flagyl 250mg TID x 10d - bentyl 20mg q6h prn pain - f/u with private GI physician, Dr. 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 (1) Abdominal pain Qualifiers: Abdominal location: periumbilical Qualified Code(s): R10.33 - Periumbilical pain
--- NOTE | 2018-02-01 13:29 | P.DS ---
<Hetal Kerr W - Last Filed: 02/01/18 13:28> Date of admission: 01/31/18 11:38 Primary care physician: Harvinder Valle MD Attending physician on discharge: Rupert Armstrong Anticipated date of discharge: 02/01/18 Brief History from admission: This 32 year old female patient with a past medical history which includes Crohn 's disease diagnosed at age 8, follow ed by Dr. Diaz, Ovarian cysts, Pericarditis and Bacterial meningitis at age 16. Patient presents to the ER with complaints of acute onset abd pain worse on the left which began early this AM while patient was sleeping. Patient does endorse associated nausea and vomiting x 5-6. Patient describes the pain as sharp and severe at onset. Patient tried taking Percocet and Phenergan at home which did not relieve symptoms. Currently patient's pain has improved after Dilaudid IV x 1 given in ER. One loose BM while in the ER, no blood or black color. Patient recently completed 2-3 month prednisone taper which she completed 1 week ago. Last colonoscopy 2014, she has colonoscopies every 5 years Patient denies fevers, chills, shortness of breath or chest pain. Pelvis Ultrasound 01/31/18 07:31 1. Negative ultrasound pelvis. Abdomen/Pelvis CT 01/31/18 08:38 1. Abnormal configuration of bowel in the right lower quadrant and upper pelvis is noted with bowel wall thickening, a small amount of free fluid and mesenteric stranding identified. There is a long segment of abnormal thickened bowel at the level of the terminal ileum with proximal small bowel dilatation suggesting at least partial obstruction or ileus. The inflammatory changes and wall thickening also appear to involve the sigmoid colon in this region. Fistulous communication between sigmoid colon and distal ileum as well as sigmoid and base of cecum are also suspected best appreciated on coronal imaging , sigmoid and distal ileum on coronal image 30 and 31, and sigmoid and cecum on image 30. Is there a history of inflammatory bowel disease? PMH: Crohn's disease diagnosed at age 8, follow ed by Dr. 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 Diaz, Ovarian cysts, Pericarditis and Bacterial meningitis at age 16. Patient presents to the ER with complaints of acute onset suprapubic pain which began early this AM while patient was sleeping. Patient does endorse associated nausea and vomiting. Patient describes the pain as sharp and severe at onset. Currently patient's pain has improved after Dilaudid 2 g IV x 1 given in ER. Patient denies fevers, chills, shortness of breath or chest pain. Pelvis Ultrasound 01/31/18 07:31 1. Negative ultrasound pelvis. Abdominal pain partial obstruction vs ileus Fistula- communication between sigmoid colon and distal ileum as well as sigmoid and base of cecum Abdomen/Pelvis CT 01/31/18 08:38 1. Abnormal configuration of bowel in the right lower quadrant and upper pelvis is noted with bowel wall thickening, a small amount of free fluid and mesenteric stranding identified. There is a long segment of abnormal thickened bowel at the level of the terminal ileum with proximal small bowel dilatation suggesting at least partial obstruction or ileus. The inflammatory changes and wall thickening also appear to involve the sigmoid colon in this region. Fistulous communication between sigmoid colon and distal ileum as well as sigmoid and base of cecum are also suspected best appreciated on coronal imaging , sigmoid and distal ileum on coronal image 30 and 31, and sigmoid and cecum on image 30. Is there a history of inflammatory bowel disease? - appreciate input from CRS, Dr. Reddy. No surgery at this time. Conservative mgmt only - Pt received IV solumedrol & IV zosyn (01/31 - 02/01) - Case d/w GI, Dr. Morrison (02/01/18) - Discharge to home today - prednisone 40mg PO daily. Further steroids per GI - flagyl 250mg TID x 10d - bentyl 20mg q6h prn pain - f/u with private GI physician, Dr. 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 - Time Spent with Patient Total time spent providing and/or coordinating discharge services: Greater than 30 minutes Exam Vital signs: Vital Signs 01/31/18 16:00 01/31/18 20:00 02/01/18 00:00 Temperature 98.1 F 98.1 F 98.2 F Pulse Rate 81 84 84 Respiratory Rate 17 18 18 Blood Pressure 103/53 L 93/50 L 92/55 L Pulse Oximetry 98 98 98 02/01/18 08:00 02/01/18 12:00 Temperature 98.0 F 98.2 F Pulse Rate 83 79 Respiratory Rate 17 17 Blood Pressure 110/55 L 104/57 L Pulse Oximetry 99 99 Intake & Output 01/31/18 02/01/18 02/01/18 18:59 06:59 18:59 Intake Total 1050 / 1050 1515 / 1515 1005 / 1005 Balance 1050 / 1050 1515 / 1515 1005 / 1005 Weight 49.895 kg 49.9 kg Intake: IV 1050 / 1050 1155 / 1155 1005 / 1005 KCl Inj 10 MEQ In 1/2 Normal 1005 / 1005 1005 / 1005 Saline Inj 1,000 ML @ 100 mls/ hr IV.CONT .Q10H3M [facility]RAY Rx#: [id number] Zosyn 3.375 GM Premix 50 ML @ 50 / 50 150 / 150 100 mls/hr IV.SIG Q6H M[facility]RAY Rx#: [id number] NS Inj 1,000 ML @ Wide Open IV. 1000 / 1000 SIG BOLUS MURRAY Rx#:[id number] Oral 360 / 360 Other: # Voids 2 Date of Last Bowel Movement 01/31/18 02/01/18 # Bowel Movements 1 Narrative: GENERAL: This is a well-nourished, well-developed patient, in no apparent distress. CARDIOVASCULAR: Regular rate and rhythm without murmurs, gallops, or rubs. RESPIRATORY: Clear to auscultation. Breath sounds equal bilaterally. No wheezes , rales, or rhonchi. GASTROINTESTINAL: Abdomen soft, non-tender, nondistended. Normal active bowel sounds MUSCULOSKELETAL: Extremities without clubbing, cyanosis, or edema. NEURO: Alert & Oriented x4 to person, place, time, situation. Moves all ext x4 Results Procedures completed during hospitalization: none Labs on day of discharge: Labs from last 24 hours 02/01/18 02/01/18 01/31/18 05:36 05:36 13:49 WBC 8.3 RBC 4.17 Hgb 12.6 Hct 36.0 MCV 86.3 MCH 30.2 MCHC 35.0 RDW 13.5 Plt Count 236 MPV 9.6 Neut % (Auto) 88.8 H Lymph % (Auto) 8.5 L [place] % (Auto) 2.6 Eos % (Auto) 0.0 Baso % (Auto) 0.1 Neut # (Auto) 7.3 Lymph # (Auto) 0.7 L [place] # (Auto) 0.2 Eos # (Auto) 0.0 Baso # (Auto) 0.0 WBC Differential . Differential Comment Auto diff final PT INR APTT Sodium 143 Potassium 3.7 Chloride 108 H Carbon Dioxide 23.4 Anion Gap 12 BUN 7 Creatinine 0.64 Estimated GFR Greater than 89 Random Glucose 104 Calcium 8.4 L D Magnesium 2.0 01/31/18 01/31/18 13:49 13:49 WBC RBC Hgb Hct MCV MCH MCHC RDW Plt Count MPV Neut % (Auto) Lymph % (Auto) [place] % (Auto) Eos % (Auto) Baso % (Auto) Neut # (Auto) Lymph # (Auto) [place] # (Auto) Eos # (Auto) Baso # (Auto) WBC Differential Differential Comment PT 10.0 INR 1.0 APTT 25.9 Sodium Potassium Chloride Carbon Dioxide Anion Gap BUN Creatinine Estimated GFR Random Glucose Calcium Magnesium - Impressions ITS Impressions Chest X-Ray 01/31/18 00:00 CONCLUSION: Negative examination. Pelvis Ultrasound 01/31/18 07:31 CONCLUSION: 1. Negative ultrasound pelvis. Abdomen/Pelvis CT 01/31/18 08:38 CONCLUSION: 1. Abnormal configuration of bowel in the right lower quadrant and upper pelvis is noted with bowel wall thickening, a small amount of free fluid and mesenteric stranding identified. There is a long segment of abnormal thickened bowel at the level of the terminal ileum with proximal small bowel dilatation suggesting at least partial obstruction or ileus. The inflammatory changes and wall thickening also appear to involve the sigmoid colon in this region. Fistulous communication between sigmoid colon and distal ileum as well as sigmoid and base of cecum are also suspected best appreciated on coronal imaging , sigmoid and distal ileum on coronal image 30 and 31, and sigmoid and cecum on image 30. Is there a history of inflammatory bowel disease? <Rupert Armstrong B - Last Filed: 02/01/18 16:28> Date of admission: 01/31/18 11:38 Primary care physician: Harvinder Valle MD DS: Diagnosis - Discharge Diagnosis (1) Abdominal pain Status: Acute DS: Summary Hospital Course: Patient examined. Assessment and plan formulated with Hetal Kerr PA-C. I agree with the above. - Time Spent with Patient Total time spent providing and/or coordinating discharge services: Greater than 30 minutes Exam Vital signs: Vital Signs 01/31/18 20:00 02/01/18 00:00 02/01/18 08:00 Temperature 98.1 F 98.2 F 98.0 F Pulse Rate 84 84 83 Respiratory Rate 18 18 17 Blood Pressure 93/50 L 92/55 L 110/55 L Pulse Oximetry 98 98 99 02/01/18 12:00 Temperature 98.2 F Pulse Rate 79 Respiratory Rate 17 Blood Pressure 104/57 L Pulse Oximetry 99 Intake & Output 01/31/18 02/01/18 02/01/18 18:59 06:59 18:59 Intake Total 1050 / 1050 1515 / 1515 1005 / 1005 Balance 1050 / 1050 1515 / 1515 1005 / 1005 Weight 49.895 kg 49.9 kg Intake: IV 1050 / 1050 1155 / 1155 1005 / 1005 KCl Inj 10 MEQ In 1/2 Normal 1005 / 1005 1005 / 1005 Saline Inj 1,000 ML @ 100 mls/ hr IV.CONT .Q10H3M M[facility]RAY Rx#: [id number] Zosyn 3.375 GM Premix 50 ML @ 50 / 50 150 / 150 100 mls/hr IV.SIG Q6H M[facility]RAY Rx#: [id number] NS Inj 1,000 ML @ Wide Open IV. 1000 / 1000 SIG BOLUS MURRAY Rx#:[id number] Oral 360 / 360 Other: # Voids 2 Date of Last Bowel Movement 01/31/18 02/01/18 # Bowel Movements 1 Results Labs on day of discharge: Labs from last 24 hours 02/01/18 02/01/18 05:36 05:36 WBC 8.3 RBC 4.17 Hgb 12.6 Hct 36.0 MCV 86.3 MCH 30.2 MCHC 35.0 RDW 13.5 Plt Count 236 MPV 9.6 Neut % (Auto) 88.8 H Lymph % (Auto) 8.5 L [place] % (Auto) 2.6 Eos % (Auto) 0.0 Baso % (Auto) 0.1 Neut # (Auto) 7.3 Lymph # (Auto) 0.7 L [place] # (Auto) 0.2 Eos # (Auto) 0.0 Baso # (Auto) 0.0 WBC Differential . Differential Comment Auto diff final Sodium 143 Potassium 3.7 Chloride 108 H Carbon Dioxide 23.4 Anion Gap 12 BUN 7 Creatinine 0.64 Estimated GFR Greater than 89 Random Glucose 104 Calcium 8.4 L D - Impressions ITS Impressions Chest X-Ray 01/31/18 00:00 CONCLUSION: Negative examination. Pelvis Ultrasound 01/31/18 07:31 CONCLUSION: 1. Negative ultrasound pelvis. Abdomen/Pelvis CT 01/31/18 08:38 CONCLUSION: 1. Abnormal configuration of bowel in the right lower quadrant and upper pelvis is noted with bowel wall thickening, a small amount of free fluid and mesenteric stranding identified. There is a long segment of abnormal thickened bowel at the level of the terminal ileum with proximal small bowel dilatation suggesting at least partial obstruction or ileus. The inflammatory changes and wall thickening also appear to involve the sigmoid colon in this region. Fistulous communication between sigmoid colon and distal ileum as well as sigmoid and base of cecum are also suspected best appreciated on coronal imaging , sigmoid and distal ileum on coronal image 30 and 31, and sigmoid and cecum on image 30. Is there a history of inflammatory bowel disease? Discharge Plan - Discharge Order Discharge Orders: Discharge Order (Routine); Ordered 02/01/18 Ordered By: Hetal Kerr - Discharge Details Anticipated Discharge Date: 02/01/18 - Physicians Team Primary Care Provider: Harvinder Valle Attending Provider: Rupert Armstrong Other Providers: Jax Morrison MD ; Manjit Reddy MD
--- NOTE | 2018-02-01 15:33 | ECG ---
Date Performed: 01/31/2018 Time Performed: 20:59:50 PTAGE: 32 years EKG: Sinus rhythm NORMAL ECG NO PREVIOUS TRACING DOCTOR: Blair Lincoln Interpretating Date/Time 02/01/2018 15:32:29
--- NOTE | 2018-02-01 16:57 | MB ---
cc: Jax Morrison MD DATE: 02/01/2018 REASON FOR GASTROINTESTINAL: Evaluation of Crohn disease. 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 She is followed by Dr. Diaz in our practice. She has been seen by Dr. Reddy, colorectal surgery, this admission. She presented to the ER with complaints of mid to lower abdominal pain, more towards the left side. She had been seen in the office recently and completed a short course of prednisone 30 mg that was tapered over 2-3 months. Two weeks after tapering, she began having symptoms. Here in the hospital, she began having diarrhea as well. CT scan was obtained and this revealed terminal ileitis with long segment of abnormal length of terminal ileum with proximal dilation of the small bowel. She has what appeared to be fistulous tracts involving the sigmoid and cecum as well. She has been started on IV steroids. The patient had received Remicade at one point while she was in college. She took this for 6 months, but that apparently developed some sort of skin reaction and this was discontinued. She states that in the past she had responded to antibiotic therapy including Cipro, Flagyl and steroids. We discussed the side effect profile of some of these medications, especially steroids. She states that she did get tendinitis with Cipro. We would like to try to avoid that at this time. We discussed biologic therapy as the most efficient way to place her in remission. At some point, she would like to start a family and have children with her , but we explained the importance of trying to treat her Crohn and keep her in remission for an extended time before any thoughts of that were to occur. Once again, the patient has been seen by Dr. Reddy on this admission as well. She is doing well now on IV steroids. PAST MEDICAL HISTORY: Bacterial meningitis, history of pericarditis, ovarian cysts. FAMILY HISTORY: There is no family history of inflammatory bowel disease or colorectal disease. 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 No smoking or illicit drug use. ALLERGIES: 1. INFLIXIMAB. 2. SULFAMETHOXAZOLE. 3. TRIMETHOPRIM. 4. CIPROFLOXACIN ALSO CAUSED TENDINITIS. MEDICATIONS AT HOME: She was not taking any active medications for Crohn disease. She did finish a steroid dose, 30 mg tapered down about 2-3 weeks ago. REVIEW OF SYSTEMS: A 10-point review of systems is as stated above. She denies any fever or chills. She did have some vomiting, which has subsided. She denies any rectal bleeding. PHYSICAL EXAMINATION: GENERAL: Well-developed female, alert and oriented x3, no acute distress. VITAL SIGNS: Stable. She is normotensive, afebrile. SKIN: Warm and dry. HEENT: Normocephalic. Sclerae are anicteric. Oral mucosa moist. NECK: Supple. No JVD masses or nodes. CARDIAC: S1, S2, regular. LUNGS: Clear. ABDOMEN: Soft, very minimal tenderness in the lower abdomen. No rebound or guarding. Bowel sounds are present. No organomegaly or masses. EXTREMITIES: Without clubbing, cyanosis or edema. NEUROLOGIC: She is without any focal defects. LABORATORY DATA: White count 14,000, hemoglobin was normal. Liver enzymes were normal. Creatinine 0.79. Lipase was normal as well. IMPRESSION: A 32-year-old female with a history of longstanding chronic Crohn disease with recurrent flares. Most recently, the patient had a flare, was treated with steroids, but she quickly flared again while off steroids. CT reveals a fistulous involvement of the cecum and sigmoid colon. PLAN: We had a thorough discussion about Crohn disease and the need for biologic therapy, i.e. Humira and Entyvio to keep her in remission. We discussed the long-term side effects of steroids as well. The patient can be discharged on oral prednisone 40 mg, along with Bentyl 20 mg every 6 hours as needed for abdominal cramps. I advised very low-dose Imodium 1-2 a day, if needed. I also advised Flagyl 250 mg 3 times a day for at least 10 days as well. She will follow up with Dr. Diaz as an outpatient for further discussion and initiation of biologic therapy. We have answered all her questions today. Thank you kindly for the consult. MD VICTORIANO Nogueira/carey , 12:43 PM , 12:54 PM
== END 2018-02-01 13:35 | disposition home or self-care (01) ==
LOC: NEPE 07:09 → NEDA 11:38 → N07 13:15
PROVIDERS: ADMIT Hospitalist; ATTEND Hospitalist